=== PATIENT | male | born 1990 | race Caucasian/White ===

== ENCOUNTER 2018-11-06 20:41 | Emergency (ER) | payer SELFPAY ==
[2018-11-06] MEDS: TETRACAINE 0.5% 4 ML OPH RIGHT EYE (21:40)
[2018-11-06] MEDS: FLUORESCEIN STRIP RIGHT EYE (21:52)
== END 2018-11-06 22:17 | disposition home or self-care (01) ==
LOC: FTE 20:41
DX: S05.01XA Injury of conjunctiva and corneal abrasion without foreign body, right eye, initial encounter (principal); F17.210 Nicotine dependence, cigarettes, uncomplicated; X58.XXXA Exposure to other specified factors, initial encounter; Y92.9 Unspecified place or not applicable
CPT/HCPCS: 99283